=== PATIENT | male | born 1945 | race Caucasian/White ===

== ENCOUNTER → 2019-11-19 16:33 | Outpatient (BNVA) | payer MEDICARE, OTHER, SELFPAY | PROVIDERS: PCP Nurse Practitioner; Visit Provider Nurse Practitioner | DX: R53.83 Other fatigue (principal); Z11.59 Encounter for screening for other viral diseases | CPT/HCPCS: 80053; 81000; 85025; 87635 ==

== ENCOUNTER → 2019-11-25 09:38 | Outpatient (BNVA) | payer MEDICARE, OTHER, SELFPAY | PROVIDERS: PCP Nurse Practitioner; Visit Provider Nurse Practitioner | DX: R73.9 Hyperglycemia, unspecified (principal) | CPT/HCPCS: 83036 ==

== ENCOUNTER 2019-12-24 13:15 | Emergency (ER) | payer MEDICARE, OTHER, SELFPAY ==
[2019-12-24 13:30] VITALS: BP 143/80; PULSE 77; RESP 16; TEMP 36.3; O2SAT 97; BMI 27.7
[2019-12-24 13:42] VITALS: PULSE 76
--- NOTE | 2019-12-24 13:45 | XR_ITS ---
WS: [id number] Right wrist, 3 views, 12/24/2019 Clinical Data: trauma Comparison: None. Findings: There is a comminuted impacted fracture of the distal right radius with slight dorsal displacement of the distal fracture fragment. There is a simple fracture of the right ulnar styloid. Soft tissue swelling is seen. There are calcifications in the wall of the small vessels. The carpal b ones are intact XR/XR wrist RT min 3V* [id number] Impression: 1. Comminuted impacted fracture of distal right radius. 2. Simple fracture of the right ulnar styloid.
--- NOTE | 2019-12-24 13:45 | XR_ITS ---
WS: [id number] Right forearm, AP and lateral views, 12/24/2019 Clinical Data: trauma Comparison: None. Findings: There is a comminuted impacted fracture of the distal right radius. There is a simple fracture of the right ulnar styloid. The shafts of the radius and ulna appear to be normal. Visualized right elbow i s unremarkable. The carpal bones are normal. There is soft tissue swelling about the fracture site. T here is minimal calcification in the hair of small vessels. XR/XR forearm RT 2V 82120 Impression: 1. Comminuted impacted fracture of distal right radius. 2. Simple fracture of the right ulnar styloid.
--- NOTE | 2019-12-24 13:46 | ED_ITS ---
HPI - Extremity Injury (Upper) General: Chief Complaint: Extremity Injury, Upper Stated Complaint: R wrist injury/pain Time Seen by Provider: 12/24/19 13:32 Source: patient and family Mode of arrival: ambulatory Limitations: no limitations History of Present Illness: HPI narrative: Patient is a very nice 74-year-old male who presents to ED today for evaluation of right wrist pain that occurred following a fall that occurred this morning. Patient tells me he tripped and fell. He has no other complaints at this time. He denies striking his head, LOC, neck or back pain. MD complaint: injury to: right and wrist Onset (ago): hour(s) Place: home Severity: moderate Relieving factors: immobilization Exacerbating factors: movement of extremity Context: fall Associated symptoms: Reports no associated symptoms Review of Systems Musc: Reports: joint pain (R wrist pain), joint swelling (R wrist) and limited range of motion (secondary to pain) Neuro: Denies: numbness in extremities or sensory changes PFSH ED PFSH: Medical History (Updated 12/24/19 @ 14:17 by JAIMIE Husain) History of skull fracture Surgical History (Updated 11/19/19 @ 16:59 by KANIKA Celeste) History of hernia repair Family History Other Cancer Diabetes Heart disease Social History (Updated 12/24/19 @ 13:36 by Anand Acosta RN) Smoking and tobacco status: current every day smoker Second hand smoke exposure: Yes Smoking risk assessment/counseling performed?: Yes Alcohol intake: current Alcohol intake frequency: 0-2 Drinks per Day Desire information about alcohol rehabilitation?: No Counseling given: No Desire information about substance/drug rehabilitation?: No Counseling given: No Adopted: No Caregiver/support person: No Lives independently: Yes Household members: spouse Housing: House Marital status: Current occupational status: employed History of recent travel: No Current gender identity: Male Physical Exam Const: COMMON NORMALS: no acute distress, average body habitus, patient oriented x3, no limitations, healthy appearing, alert and well nourished Extremity: GENERAL: Yes normal exam except as noted RIGHT UPPER EXTREMITY: Yes lower arm (TTP mid to distal forearm) and Yes wrist (deformity consistent with fracture; dec ROM secondary to pain) Right wrist: Yes neurovascular exam (normal ) Neuro: COMMON NORMALS: patient oriented x3 and no sensory deficits noted SENSORIUM/ORIENTATION: Yes alert Skin: COMMON NORMALS: no rashes or lesions noted GENERAL SKIN EXAM: no rashes or lesions noted Course Vital Signs: Vital signs: Vital Signs Temperature 97.3 F L 12/24/19 13:30 Pulse Rate 70 12/24/19 14:39 Respiratory Rate 18 12/24/19 14:39 Blood Pressure 138/76 12/24/19 14:39 Pulse Oximetry 98 12/24/19 14:39 MDM - Extremity Injury (Upper) MDM Narrative: Medical decision making narrative: Patient will be splinted. He wants to follow up with Dr. Sutherland in [place], [place]. He will be given copies of XRs on disc. Imaging Data^: XR R wrist: Radiologist's impression: [address] [address] XRay Report Signed Patient: Jalil De Leon Unit #: [id number] : 1945 Age/Sex: 74 / M ADM Date: 12/24/19 Loc: ER Room/Bed: Attending Dr: Ordering Provider/Ordering MD: Jennifer Rose Date of Service: 12/24/19 Procedure(s): XR wrist RT min 3V* 42669 Accession Number(s): [id number] Report Number: [id number] WS: [id number] Right wrist, 3 views, 12/24/2019 Clinical Data: trauma Comparison: None. Findings: There is a comminuted impacted fracture of the distal right radius with slight dorsal displacement of the distal fracture fragment. There is a simple fracture of the right ulnar styloid. Soft tissue swelling is seen. There are calcifications in the wall of the small vessels. The carpal bones are intact XR/XR wrist RT min 3V* 34114 Impression: 1. Comminuted impacted fracture of distal right radius. 2. Simple fracture of the right ulnar styloid. Dictated By: Susy Hayes MD Signed By: Susy Hayes MD Signed Date/Time: 12/24/191402 DD/ 1402 XR R forearm: Radiologist's impression: [facility] [address] [place] [address] XRay Report Signed Patient: Jalil De Leon Unit #: [id number] : 1945 Age/Sex: 74 / M ADM Date: 12/24/19 Loc: ER Room/Bed: Attending Dr: Ordering Provider/Ordering MD: Jennifer Rose Date of Service: 12/24/19 Procedure(s): XR forearm RT 2V 78758 Accession Number(s): [id number] Report Number: [id number] WS: [id number] Right forearm, AP and lateral views, 12/24/2019 Clinical Data: trauma Comparison: None. Findings: There is a comminuted impacted fracture of the distal right radius. There is a simple fracture of the right ulnar styloid. The shafts of the radius and ulna appear to be normal. Visualized right elbow is unremarkable. The carpal bones are normal. There is soft tissue swelling about the fracture site. There is minimal calcification in the hair of small vessels. XR/XR forearm RT 2V 39566 Impression: 1. Comminuted impacted fracture of distal right radius. 2. Simple fracture of the right ulnar styloid. Dictated By: Susy Hayes MD Signed By: Susy Hayes MD Signed Date/Time: 12/24/19 1402 DD/ 1400 Discharge Plan Discharge Patient Disposition: Home Clinical Impression: Distal radial fracture Qualifiers: Encounter type: initial encounter Fracture type: closed Fracture morphology: other intra-articular Laterality: right Qualified Code(s): S52.571A - Other intraarticular fracture of lower end of right radius, initial encounter for closed fracture Fracture of right ulnar styloid Qualifiers: Encounter type: initial encounter Fracture type: closed Fracture alignment: displaced Qualified Code(s): S52.611A - Displaced fracture of right ulna styloid process, initial encounter for closed fracture Condition: Stable Prescriptions: New hydrocodone-acetaminophen 5-325 mg tablet 1 tab PO Q4H PRN (Reason: pain) Qty: 20 RF: 0 No Action No Known Home Medications RF: 0 Discharge Orders: Discharge Order (Routine); Ordered 12/24/19 Ordered By: Jennifer Rose Referrals: Nicky Crawford, [facility] [Primary Care Provider] - Patient Instructions: Wrist Fracture in Adults (ED) Activity Restrictions/Additional Instructions: As discussed please contact Dr. Sutherland's office as soon as possible to schedule a follow-up appointment. Please bring your disc x-rays with you. Discharge Date/Time: 12/24/19 14:40 Coding Level of Care Code ED Window Trimmer for Chg Fwd Exam Expanded Problem Focused
[2019-12-24 14:39] VITALS: BP 138/76; PULSE 70; RESP 18; O2SAT 98
== END 2019-12-24 14:40 | disposition home or self-care (01) ==
PROVIDERS: Emergency Provider Physician Assistant; PCP Nurse Practitioner
DX: S52.571A Other intraarticular fracture of lower end of right radius, initial encounter for closed fracture (principal); S52.611A Displaced fracture of right ulna styloid process, initial encounter for closed fracture; F17.210 Nicotine dependence, cigarettes, uncomplicated; W19.XXXA Unspecified fall, initial encounter
CPT/HCPCS: 12345; 29125; 73090; 73110; 99281; 99283

== ENCOUNTER 2021-12-04 16:28 | Emergency (ER) | payer MEDICARE, OTHER, SELFPAY ==
[2021-12-04 16:33] VITALS: BP 141/85; PULSE 104; RESP 20; TEMP 36.6; O2SAT 95; BMI 28.3
--- NOTE | 2021-12-04 16:45 | XRR_ITS ---
PROCEDURE INFORMATION: Exam: XR Left Ankle Exam date and time: 12/04/2021 5:35 PM Age: 76 years old Clinical indication: Pain; Ankle; Left; Additional info: Trauma TECHNIQUE: Imaging protocol: Radiologic exam of the Left ankle. Views: 3 or more views. COMPARISON: No relevant prior studies available. FINDINGS: Bones/joints: Lateral malleolar soft tissue swelling. Distal Achilles tendon degenerative calcification. Soft tissues: See Bones/joints finding. Vasculature: Scattered vascular calcifications. XR/XR ankle LT min 3V* [id number] IMPRESSION: 1. Lateral malleolar soft tissue swelling. 2. Scattered vascular calcifications. 3. Distal Achilles tendon degenerative calcification.
--- NOTE | 2021-12-04 16:45 | XRR_ITS ---
PROCEDURE INFORMATION: Exam: XR Right Ribs with PA Chest Exam date and time: 12/04/2021 6:25 PM Age: 76 years old Clinical indication: Chest wall pain; Right; Additional info: Trauma TECHNIQUE: Imaging protocol: Radiologic exam of the Right ribs with PA chest. Views: 3 views COMPARISON: No relevant prior studies available. FINDINGS: Lungs: Unremarkable. No consolidation. Pleural spaces: Unremarkable. No pleural effusion. No pneumothorax. Heart/Mediastinum: Cardiomegaly. Bones/joints: Unremarkable. XR/XR ribs RT mn 3V w CXR1V [id number] IMPRESSION: 1. Negative for traumatic injury to the chest. 2. Cardiomegaly.
--- NOTE | 2021-12-04 17:02 | XRR_ITS ---
PROCEDURE INFORMATION: Exam: XR Right Hip Exam date and time: 12/04/2021 5:37 PM Age: 76 years old Clinical indication: Hip pain; Right hip; Additional info: Trauma TECHNIQUE: Imaging protocol: Radiologic exam of the Right hip. Views: 1 view hip with pelvis when performed. COMPARISON: No relevant prior studies available. FINDINGS: Bones/joints: [id number] right hip osteoarthritis. Soft tissues: Unremarkable. Vasculature: Scattered vascular calcifications. XR/XR hip RT 1V wo/w pel [id number] IMPRESSION: 1. Negative for fracture or dislocation. 2. [id number] right hip osteoarthritis. 3. Scattered vascular calcifications.
--- NOTE | 2021-12-04 17:03 | W.ED.FALL ---
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 He thinks he may have struck his head he has not had any nausea or vomiting. He denies any loss of consciousness with this episode. No hematemesis or coffee-ground emesis. He is complaining of severe rib pain. He is mild abdominal pain no hematuria. No cuts or abrasions. He has right hip pain left ankle pain with abdominal and chest pain as well as neck and head pain. MD complaint: fall Onset (ago): hour(s) Fall from: standing Fall witnessed: no Place fall occurred: home Loss of consciousness: None Prolonged down time: yes Symptoms prior to fall: none Context: tripped/slipped Location of injury: head, chest, abdomen and pelvis Location of injury - extremities: Left: ankle Severity: severe Associated symptoms-after fall: Reports abdominal pain, chest pain, difficulty walking, neck pain and short of breath; Denies confusion, headache(s), hematuria, lightheadedness, numbness, vertigo or weakness Review of Systems Const: Denies: fever(s), chills, body aches, change in appetite, fatigue or malaise ENMT: Denies: throat pain, ear or mastoid pain, nasal discharge or nasal congestion Card: Reports: chest pain; Denies: edema, lightheadedness, dyspnea on exertion or orthopnea Resp: Denies: dyspnea, productive cough or non-productive cough GI: Reports: abdominal pain; Denies: nausea, vomiting, hematemesis, coffee ground emesis, diarrhea, constipation, bloating, hematochezia or melena : Reports: flank pain; Denies: difficulty urinating, dysuria, urinary frequency, urinary urgency or hematuria Musc: Reports: neck pain Skin/Breast: Denies: rash or pruritus Neuro: Reports: difficulty walking; Denies: headache(s), vertigo or confusion PFSH ED PFSH: Medical History History of skull fracture Surgical History History of hernia repair Family History Other Cancer Diabetes Heart disease Social History Smoking and tobacco status: current every day smoker Second hand smoke exposure: Yes Smoking risk assessment/counseling performed?: Yes Alcohol intake: current Alcohol intake frequency: 0-2 Drinks per Day Desire information about alcohol rehabilitation?: No Counseling given: No Desire information about substance/drug rehabilitation?: No Counseling given: No Adopted: No Caregiver/support person: No Lives independently: Yes Household members: spouse Housing: House Marital status: Current occupational status: employed History of recent travel: No Current gender identity: Male Physical Exam Const: GENERAL APPEARANCE: cooperative ORIENTATION/CONSCIOUSNESS: Yes awake, Yes oriented to person, Yes oriented to place and Yes oriented to time HENMT: COMMON NORMALS: normocephalic, atraumatic and hearing grossly normal bilaterally HEAD & SCALP: normocephalic and atraumatic Resp: COMMON NORMALS: normal respiratory effort, No retractions, No use of accessory muscles and clear to auscultation bilaterally AUSCULTATION: clear to auscultation bilaterally Cardio: COMMON NORMALS: regular rate, regular rhythm and No murmurs present (Cardio) RATE: regular rate RHYTHM: regular rhythm GI: COMMON NORMALS: Soft to palpation and No hepatosplenomegaly present AUSCULTATION: Yes normoactive bowel sounds PALPATION: Yes Soft to palpation, No Tenderness to palpation present (GI), No Guarding due to palpation present (GI) and Yes No hepatosplenomegaly present Extremity: COMMON NORMALS: normal to inspection, capillary refill normal, no clubbing, cyanosis or edema, no calf tenderness and no pedal edema Neuro: SENSORIUM/ORIENTATION: Yes oriented to person, Yes oriented to place and Yes oriented to time Skin: COMMON NORMALS: no rashes or lesions noted GENERAL SKIN EXAM: no rashes or lesions noted Course Vital Signs: Vital signs: Vital Signs Temperature 97.8 F 12/04/21 16:33 Pulse Rate 84 12/04/21 20:04 Respiratory Rate 16 12/04/21 20:04 Blood Pressure 142/90 12/04/21 20:04 Pulse Oximetry 97 12/04/21 20:04 Oxygen Delivery Me thod 12/04/21 19:27 Oxygen Flow Rate 1.5 12/04/21 19:27 MDM - Fall Medical Decision Making Care signed out to Dr. Gómez at change of shift. See final notes for diagnosis and disposition. Patient presents with contusion along with an ankle sprain from a fall his x-ray and CTs here are all normal he is stable for discharge he is to follow-up with PCP and return if worsening he understands agrees to plan. Lab Data : 12/04/21 17:10 12/04/21 17:10 Radiology Impressions Ankle X-Ray 12/04/21 16:45 IMPRESSION: 1. Lateral malleolar soft tissue swelling. 2. Scattered vascular calcifications. 3. Distal Achilles tendon degenerative calcification. Ribs X-Ray 12/04/21 16:45 IMPRESSION: 1. Negative for traumatic injury to the chest. 2. Cardiomegaly. Hip X-Ray 12/04/21 17:02 IMPRESSION: 1. Negative for fracture or dislocation. 2. [id number] right hip osteoarthritis. 3. Scattered vascular calcifications. Cervical Spine CT 12/04/21 17:09 IMPRESSION: Negative for fracture or dislocation. Chest/Abdomen/Pelvis CT 12/04/21 17:09 IMPRESSION: No acute findings in the chest IMPRESSION: 1. No acute findings. 2. 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 Head CT 12/04/21 17:09 IMPRESSION: 1. Negative for intracranial hemorrhage or mass effect. 2. Right cerebral hemisphere chronic infarct. 3. Moderate diffuse white matter disease likely reflecting chronic microvascular ischemic changes. Laboratory Results WBC 16.9 10^3/uL (4.0-10.0) H 12/04/21 17:10 RBC 4.51 10^6/uL (4.1-5.3) 12/04/21 17:10 Hgb 15.3 g/dL (11.7-16.6) 12/04/21 17:10 Hct 44.2 % (42.0-52.0) 12/04/21 17:10 MCV 98.0 fl (80-94) H 12/04/21 17:10 MCH 33.9 pg (28.0-34.0) 12/04/21 17:10 MCHC 34.6 g/dL (30.0-36.0) 12/04/21 17:10 RDW 12.3 % (12.1-15.1) 12/04/21 17:10 Plt Count 270 10^3/cmm (130-400) 12/04/21 17:10 MPV 12.3 fL (7.4-10.4) H 12/04/21 17:10 Neut % (Auto) 77.3 % 12/04/21 17:10 Lymph % (Auto) 14.3 % 12/04/21 17:10 Coal % (Auto) 7.0 % 12/04/21 17:10 Eos % (Auto) 0.5 % 12/04/21 17:10 Baso % (Auto) 0.2 % 12/04/21 17:10 Neut # (Auto) 13.05 10^3/uL (1.8-7.7) H 12/04/21 17:10 Lymph # (Auto) 2.4 10^3/uL (0.8-4.8) 12/04/21 17:10 Coal # (Auto) 1.2 10^3/uL (0.2-0.9) H 12/04/21 17:10 Eos # (Auto) 0.1 10^3/uL (0.0-0.8) 12/04/21 17:10 Baso # (Auto) 0.0 10^3/uL (0.0-0.1) 12/04/21 17:10 Nucleated RBC % (auto) 0 % 12/04/21 17:10 Nucleated RBCs # 0.0 /100WBC 12/04/21 17:10 Sodium 127 mmol/L (136-145) L 12/04/21 17:10 Potassium 3.9 mmol/L (3.5-5.1) 12/04/21 17:10 Chloride 92 mmol/L (98-107) L 12/04/21 17:10 Carbon Dioxide 23 mmol/L (22-29) 12/04/21 17:10 Anion Gap 15.9 (5-19) 12/04/21 17:10 BUN 7 mg/dL (8-23) L 12/04/21 17:10 Creatinine 0.7 mg/dL (0.7-1.2) 12/04/21 17:10 GFR Calculation Not Reportable 12/04/21 17:10 Glucose 110 mg/dL (65-115) 12/04/21 17:10 Calculated Osmolality 263 mOsm/kg (285-295) L 12/04/21 17:10 Calcium 8.8 mg/dL (8.5-10.5) 12/04/21 17:10 Urine Color Yellow (Yellow) 12/04/21 19:25 Urine Appearance Clear (CLEAR) 12/04/21 19:25 Urine pH 6 (5-7) 12/04/21 19:25 Ur Specific Unity 1.005 (1.005-1.030) 12/04/21 19:25 Urine Protein Neg (Negative) 12/04/21 19:25 Urine Glucose (UA) Norm (Normal) 12/04/21 19:25 Urine Ketones Negative (Negative) 12/04/21 19:25 Urine Blood Neg (Negative) 12/04/21 19:25 Urine Nitrate Negative (Negative) 12/04/21 19:25 Urine Bilirubin Neg (Negative) 12/04/21 19:25 Urine Urobilinogen Neg mg/dL (Negative) 12/04/21 19:25 Ur Leukocyte Esterase Negative (Negative) 12/04/21 19:25 Discharge Plan Discharge Patient Disposition: Home Clinical Impression: Fall, Left ankle sprain Condition: Stable Prescriptions: New hydrocodone-acetaminophen 5-325 mg tablet 1 tab PO Q6H PRN (Reason: pain) Qty: 14 0RF No Action dextromethorphan-guaifenesin [Mucinex DM] 60-1,200 mg tablet extended release 12 hr 1 tab PO Q12H 14 Days Qty: 28 0RF doxycycline hyclate 100 mg capsule 100 mg PO BID 7 Days Qty: 14 0RF prednisone 20 mg tablet 20 mg PO BID 5 Days Qty: 10 0RF (DME) compressor, for nebulizer Device See Rx Instructions .ROUTE .MEDSUPPLY Qty: 1 0RF Rx Instructions: As directed (DME) nebulizer accessories Kit See Rx Instructions .ROUTE .MEDSUPPLY Qty: 1 0RF Rx Instructions: As directed albuterol sulfate 2.5 mg /3 mL (0.083 %) solution for nebulization 2.5 mg INHALATION QID PRN (Reason: shortness of breath or wheezing) 14 Days Qty: 75 0RF hydrocodone-acetaminophen 5-325 mg tablet 1 tab PO Q4H PRN (Reason: pain) Qty: 20 0RF Discharge Orders: Discharge ED (Routine); Ordered 12/04/21 Ordered By: Molly Gómez Referrals: Nicky Crawford, KANIKA [Primary Care Provider] - Discharge Diet: Advance as tolerated Discharge Activity: Resume usual activity Patient Instructions: Ankle Sprain (ED), Opioid Safety Coding Level of Care Code ED [employer] for Chg Fwd Exam Detailed Documented by User: Molly Gómez MD 12/04/21 20:09 HPI - Fall General: Chief Complaint: Fall Stated Complaint: Tractor accident-pain all over/n/v Time Seen by Provider: 12/04/21 16:45 [facility] PFSH: Medical History History of skull fracture Surgical History History of hernia repair Family History Other Cancer Diabetes Heart disease Social History Smoking and tobacco status: current every day smoker Second hand smoke exposure: Yes Smoking risk assessment/counseling performed?: Yes Alcohol intake: current Alcohol intake frequency: 0-2 Drinks per Day Desire information about alcohol rehabilitation?: No Counseling given: No Desire information about substance/drug rehabilitation?: No Counseling given: No Adopted: No Caregiver/support person: No Lives independently: Yes Household members: spouse Housing: House Marital status: Current occupational status: employed History of recent travel: No Current gender identity: Male Course Vital Signs: Vital signs: Vital Signs Temperature 97.8 F 12/04/21 16:33 Pulse Rate 84 12/04/21 20:04 Respiratory Rate 16 12/04/21 20:04 Blood Pressure 142/90 12/04/21 20:04 Pulse Oximetry 97 12/04/21 20:04 Oxygen Delivery Me thod 12/04/21 19:27 Oxygen Flow Rate 1.5 12/04/21 19:27 MDM - Fall Medical Decision Making Patient presents with contusion along with an ankle sprain from a fall his x-ray and CTs here are all normal he is stable for discharge he is to follow-up with PCP and return if worsening he understands agrees to plan. Lab Data : 12/04/21 17:10 12/04/21 17:10 Radiology Impressions Ankle X-Ray 12/04/21 16:45 IMPRESSION: 1. Lateral malleolar soft tissue swelling. 2. Scattered vascular calcifications. 3. Distal Achilles tendon degenerative calcification. Ribs X-Ray 12/04/21 16:45 IMPRESSION: 1. Negative for traumatic injury to the chest. 2. Cardiomegaly. Hip X-Ray 12/04/21 17:02 IMPRESSION: 1. Negative for fracture or dislocation. 2. [id number] right hip osteoarthritis. 3. Scattered vascular calcifications. Cervical Spine CT 12/04/21 17:09 IMPRESSION: Negative for fracture or dislocation. Chest/Abdomen/Pelvis CT 12/04/21 17:09 IMPRESSION: No acute findings in the chest IMPRESSION: 1. No acute findings. 2. 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 Head CT 12/04/21 17:09 IMPRESSION: 1. Negative for intracranial hemorrhage or mass effect. 2. Right cerebral hemisphere chronic infarct. 3. Moderate diffuse white matter disease likely reflecting chronic microvascular ischemic changes. Laboratory Results WBC 16.9 10^3/uL (4.0-10.0) H 12/04/21 17:10 RBC 4.51 10^6/uL (4.1-5.3) 12/04/21 17:10 Hgb 15.3 g/dL (11.7-16.6) 12/04/21 17:10 Hct 44.2 % (42.0-52.0) 12/04/21 17:10 MCV 98.0 fl (80-94) H 12/04/21 17:10 MCH 33.9 pg (28.0-34.0) 12/04/21 17:10 MCHC 34.6 g/dL (30.0-36.0) 12/04/21 17:10 RDW 12.3 % (12.1-15.1) 12/04/21 17:10 Plt Count 270 10^3/cmm (130-400) 12/04/21 17:10 MPV 12.3 fL (7.4-10.4) H 12/04/21 17:10 Neut % (Auto) 77.3 % 12/04/21 17:10 Lymph % (Auto) 14.3 % 12/04/21 17:10 Coal % (Auto) 7.0 % 12/04/21 17:10 Eos % (Auto) 0.5 % 12/04/21 17:10 Baso % (Auto) 0.2 % 12/04/21 17:10 Neut # (Auto) 13.05 10^3/uL (1.8-7.7) H 12/04/21 17:10 Lymph # (Auto) 2.4 10^3/uL (0.8-4.8) 12/04/21 17:10 Coal # (Auto) 1.2 10^3/uL (0.2-0.9) H 12/04/21 17:10 Eos # (Auto) 0.1 10^3/uL (0.0-0.8) 12/04/21 17:10 Baso # (Auto) 0.0 10^3/uL (0.0-0.1) 12/04/21 17:10 Nucleated RBC % (auto) 0 % 12/04/21 17:10 Nucleated RBCs # 0.0 /100WBC 12/04/21 17:10 Sodium 127 mmol/L (136-145) L 12/04/21 17:10 Potassium 3.9 mmol/L (3.5-5.1) 12/04/21 17:10 Chloride 92 mmol/L (98-107) L 12/04/21 17:10 Carbon Dioxide 23 mmol/L (22-29) 12/04/21 17:10 Anion Gap 15.9 (5-19) 12/04/21 17:10 BUN 7 mg/dL (8-23) L 12/04/21 17:10 Creatinine 0.7 mg/dL (0.7-1.2) 12/04/21 17:10 GFR Calculation Not Reportable 12/04/21 17:10 Glucose 110 mg/dL (65-115) 12/04/21 17:10 Calculated Osmolality 263 mOsm/kg (285-295) L 12/04/21 17:10 Calcium 8.8 mg/dL (8.5-10.5) 12/04/21 17:10 Urine Color Yellow (Yellow) 12/04/21 19:25 Urine Appearance Clear (CLEAR) 12/04/21 19:25 Urine pH 6 (5-7) 12/04/21 19:25 Ur Specific Unity 1.005 (1.005-1.030) 12/04/21 19:25 Urine Protein Neg (Negative) 12/04/21 19:25 Urine Glucose (UA) Norm (Normal) 12/04/21 19:25 Urine Ketones Negative (Negative) 12/04/21 19:25 Urine Blood Neg (Negative) 12/04/21 19:25 Urine Nitrate Negative (Negative) 12/04/21 19:25 Urine Bilirubin Neg (Negative) 12/04/21 19:25 Urine Urobilinogen Neg mg/dL (Negative) 12/04/21 19:25 Ur Leukocyte Esterase Negative (Negative) 12/04/21 19:25 Discharge Plan Discharge Patient Disposition: Home Clinical Impression: Fall, Left ankle sprain Condition: Stable Prescriptions: New hydrocodone-acetaminophen 5-325 mg tablet 1 tab PO Q6H PRN (Reason: pain) Qty: 14 0RF No Action dextromethorphan-guaifenesin [Mucinex DM] 60-1,200 mg tablet extended release 12 hr 1 tab PO Q12H 14 Days Qty: 28 0RF doxycycline hyclate 100 mg capsule 100 mg PO BID 7 Days Qty: 14 0RF prednisone 20 mg tablet 20 mg PO BID 5 Days Qty: 10 0RF (DME) compressor, for nebulizer Device See Rx Instructions .ROUTE .MEDSUPPLY Qty: 1 0RF Rx Instructions: As directed (DME) nebulizer accessories Kit See Rx Instructions .ROUTE .MEDSUPPLY Qty: 1 0RF Rx Instructions: As directed albuterol sulfate 2.5 mg /3 mL (0.083 %) solution for nebulization 2.5 mg INHALATION QID PRN (Reason: shortness of breath or wheezing) 14 Days Qty: 75 0RF hydrocodone-acetaminophen 5-325 mg tablet 1 tab PO Q4H PRN (Reason: pain) Qty: 20 0RF Discharge Orders: Discharge ED (Routine); Ordered 12/04/21 Ordered By: Molly Gómez Referrals: Nicky Crawford, [employer] [Primary Care Provider] - Discharge Diet: Advance as tolerated Discharge Activity: Resume usual activity Patient Instructions: Ankle Sprain (ED), Opioid Safety Coding Level of Care Code ED [employer] for Chg Fwd Exam Detailed
--- NOTE | 2021-12-04 17:09 | CTR_ITS ---
PROCEDURE INFORMATION: Exam: CT Chest With Contrast; Diagnostic Exam date and time: 12/04/2021 6:56 PM Age: 76 years old Clinical indication: Injury or trauma; Fall; Generalized; Blunt trauma (contusions or hematomas); Injury details: RT sided rib, abdomen pain; Additional info: Trauma-- fell off of tractor today, complaining of side and rib pain TECHNIQUE: Imaging protocol: Diagnostic computed tomography of the chest with contrast. Radiation optimization: All CT scans at this facility use at least one of these dose optimization techniques: automated exposure control; mA and/or kV adjustment per patient size (includes targeted exams where dose is matched to clinical indication); or iterative reconstruction. Contrast material: OMNIPAQUE 350; Contrast volume: 80 ml; Contrast route: INTRAVENOUS (IV); COMPARISON: CR (CHEST, ) 12/04/2021 6:25 PM RADIATION DOSE METRICS: Total DLP (mGy-cm): 1469.18 FINDINGS: Limitations: Study somewhat limited due to streak artifact created by the patient being scanned with the arms at the sides. Lungs: There is mild dependent atelectasis at the lung bases. Pleural spaces: Unremarkable. No pneumothorax. No pleural effusion. Heart: There is a small amount of fluid in the superior pericardial recess. There is moderate atherosclerotic calcification of the coronary arteries. Lymph nodes: There is some calcified hilar and mediastinal lymph nodes in keeping with old granulomatous disease. There are small paratracheal and prevascular lymph nodes measuring up to 10 x 14 mm but no significant adenopathy. Vasculature: There is moderate ectasia of the ascending thoracic aorta with a diameter of 4.7 cm there is no evidence of aortic dissection. Bones/joints: There are old healed fractures of the posterior 5 through 8th ribs. There is mild scoliosis of the thoracic spine concave to the left. There are mild chronic appearing compression deformities of T9, T10 and T11. No acute fracture is demonstrated. Soft tissues: Unremarkable. PROCEDURE INFORMATION: Exam: CT Abdomen And Pelvis With Contrast Exam date and time: 12/04/2021 6:56 PM Age: 76 years old Clinical indication: Injury or trauma; Fall; Generalized; Blunt trauma (contusions or hematomas); Injury details: RT sided rib, abdomen pain; Additional info: Trauma-- fell off of tractor today, complaining of side and rib pain TECHNIQUE: Imaging protocol: Computed tomography of the abdomen and pelvis with contrast. Radiation optimization: All CT scans at this facility use at least one of these dose optimization techniques: automated exposure control; mA and/or kV adjustment per patient size (includes targeted exams where dose is matched to clinical indication); or iterative reconstruction. Contrast material: OMNIPAQUE 350; Contrast volume: 80 ml; Contrast route: INTRAVENOUS (IV); COMPARISON: CR (PELVIS, ) 12/04/2021 5:37 PM RADIATION DOSE METRICS: Total DLP (mGy-cm): 1469.18 FINDINGS: Limitations: Study somewhat limited due to streak artifact created by the patient being scanned with the arms at the sides. Liver: There is a diffuse decrease in hepatic parenchymal density, consistent with mild fatty infiltration. There is no focal abnormality within the liver. Gallbladder and bile ducts: The gallbladder is normal. Pancreas: The pancreas is normal. Spleen: The spleen demonstrates punctate calcifications, consistent with remote granulomatous organism exposure. Adrenal glands: The adrenal glands are normal. Kidneys and ureters: The kidneys are normal. There is no evidence of hydronephrosis. There is no evidence of renal or ureteral calcifications. Stomach and bowel: There is no evidence of colitis/diverticulitis. Appendix: A normal appendix is identified. Intraperitoneal space: There is no evidence of free intraperitoneal fluid. Vasculature: There is mild aneurysmal dilatation of the mid infrarenal abdominal aorta measuring proximally 3.6 x 3.9 cm. 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 Lymph nodes: Unremarkable. No enlarged lymph nodes. Urinary bladder: Unremarkable as visualized. Reproductive: Unremarkable as visualized. Bones/joints: The lumbar spine demonstrates mild degenerative changes at multiple levels. Soft tissues: Unremarkable. CT/CT chest abd pel w con* IMPRESSION: No acute findings in the chest IMPRESSION: 1. No acute findings. 2. 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
--- NOTE | 2021-12-04 17:09 | CTR_ITS ---
PROCEDURE INFORMATION: Exam: CT Head Without Contrast Exam date and time: 12/04/2021 6:46 PM Age: 76 years old Clinical indication: Injury or trauma; Other: Tractor accident, blunt trauma (contusions or hematomas); Consciousness not specified; Injury details: Patient fell off of tractor TECHNIQUE: Imaging protocol: Computed tomography of the head without contrast. Radiation optimization: All CT scans at this facility use at least one of these dose optimization techniques: automated exposure control; mA and/or kV adjustment per patient size (includes targeted exams where dose is matched to clinical indication); or iterative reconstruction. COMPARISON: No relevant prior studies available. RADIATION DOSE METRICS: Total DLP (mGy-cm): 1173.13 FINDINGS: Brain: Right cerebral hemisphere chronic infarct. Moderate diffuse white matter disease likely reflecting chronic microvascular ischemic changes. Cerebral ventricles: No ventriculomegaly. Paranasal sinuses: Visualized sinuses are unremarkable. No fluid levels. Mastoid air cells: Visualized mastoid air cells are well aerated. Bones/joints: Unremarkable. No acute fracture. Soft tissues: Unremarkable. CT/CT head wo con* [id number] IMPRESSION: 1. Negative for intracranial hemorrhage or mass effect. 2. Right cerebral hemisphere chronic infarct. 3. Moderate diffuse white matter disease likely reflecting chronic microvascular ischemic changes.
--- NOTE | 2021-12-04 17:09 | CTR_ITS ---
PROCEDURE INFORMATION: Exam: CT Cervical Spine Without Contrast Exam date and time: 12/04/2021 6:49 PM Age: 76 years old Clinical indication: Pain and injury or trauma; Fall; Blunt trauma; Neck pain; Prior surgery; Surgery date: 6+ months; Surgery type: Prior HX of skull fracture; Additional info: Trauma fell off of a tractor today TECHNIQUE: Imaging protocol: Computed tomography of the cervical spine without contrast. Radiation optimization: All CT scans at this facility use at least one of these dose optimization techniques: automated exposure control; mA and/or kV adjustment per patient size (includes targeted exams where dose is matched to clinical indication); or iterative reconstruction. COMPARISON: CT head wo con* [id number] 12/04/2021 6:46 PM RADIATION DOSE METRICS: Total DLP (mGy-cm): 264.07 FINDINGS: Bones/joints: No acute fracture. Normal alignment. C2-C3: No significant disc protrusion. No severe spinal canal stenosis. No significant neural foraminal narrowing. C3-C4: No significant disc protrusion. No severe spinal canal stenosis. No significant neural foraminal narrowing. C4-C5: No significant disc protrusion. No severe spinal canal stenosis. No significant neural foraminal narrowing. C5-C6: No significant disc protrusion. No severe spinal canal stenosis. No significant neural foraminal narrowing. C6-C7: No significant disc protrusion. No severe spinal canal stenosis. No significant neural foraminal narrowing. C7-T1: No significant disc protrusion. No severe spinal canal stenosis. No significant neural foraminal narrowing. Lungs: Lung apices are normal. Vasculature: Scattered carotid artery atherosclerotic calcifications. Soft tissues: Unremarkable. CT/CT cervical spin wo con* [id number] IMPRESSION: Negative for fracture or dislocation.
[2021-12-04 17:23] VITALS: RESP 18
[2021-12-04] MEDS: fentaNYL 50 mcg/mL INJ 2mL IVP (17:23)
[2021-12-04] MEDS: promethazine 25 mg/mL SDV 1 mL IM (17:24)
[2021-12-04 17:29] LABS: Basophils % 0.2 %; Eosinophils # 0.1 10^3/uL (0.0-0.8); Eosinophils % 0.5 %; Hematocrit 44.2 % (42.0-52.0); Hemoglobin 15.3 g/dL (11.7-16.6); Lymphocytes # 2.4 10^3/uL (0.8-4.8); Lymphocytes % 14.3 %; Mean Corpuscular HGB Conc 34.6 g/dL (30.0-36.0); Mean Corpuscular Hemoglobin 33.9 pg (28.0-34.0); Mean Platelet Volume 12.3 fL (7.4-10.4); Monocytes # 1.2 10^3/uL (0.2-0.9); Neutrophils # 13.05 10^3/uL (1.8-7.7); Neutrophils % 77.3 %; Nucleated Red Blood Cells % 0 %; Platelet Count 270 10^3/cmm (130-400); Red Blood Count 4.51 10^6/uL (4.1-5.3); Red Cell Distribution Width 12.3 % (12.1-15.1); White Blood Count 16.9 10^3/uL (4.0-10.0)
[2021-12-04 17:51] LABS: Anion Gap 15.9 (5-19); Blood Urea Nitrogen 7 mg/dL (8-23); Calcium 8.8 mg/dL (8.5-10.5); Carbon Dioxide 23 mmol/L (22-29); Chloride 92 mmol/L (98-107); Glucose 110 mg/dL (65-115); Osmolality Calculated 263 mOsm/kg (285-295); Potassium 3.9 mmol/L (3.5-5.1); Sodium 127 mmol/L (136-145)
[2021-12-04 18:06] VITALS: BP 144/90; PULSE 75; RESP 18; O2SAT 95
[2021-12-04] MEDS: sodium chloride 0.9% 1,000 ML 999 ML IV (19:10)
[2021-12-04] MEDS: midazolam 1 mg/mL INJ 2 mL 2 MG IVP (19:10)
[2021-12-04 19:27] VITALS: BP 154/94; PULSE 78; RESP 18; O2SAT 97
[2021-12-04 19:31] LABS: Add Urine Microscopic? NO; Charge for UA Resulting for Rev
[2021-12-04 19:34] LABS: Bilirubin Urine Neg (Negative); Blood Urine Neg (Negative); Glucose Urine UA Norm (Normal); Ketones Urine Negative (Negative); Leukocyte Esterase Urine Negative (Negative); Nitrate Urine Negative (Negative); Protein Urine Neg (Negative); Specific Gravity, Urine 1.005 (1.005-1.030); Urine Appearance Clear (CLEAR); Urine Color Yellow (Yellow); Urobilinogen Urine Neg (Negative); pH Urine 6 (5-7)
[2021-12-04 20:04] VITALS: BP 142/90; PULSE 84; RESP 16; O2SAT 97
== END 2021-12-04 20:05 | disposition home or self-care (01) ==
PROVIDERS: Family Medicine; Emergency Provider Emergency Medicine; PCP Nurse Practitioner
DX: S93.402A Sprain of unspecified ligament of left ankle, initial encounter (principal); F17.210 Nicotine dependence, cigarettes, uncomplicated; W17.89XA Other fall from one level to another, initial encounter
CPT/HCPCS: 70450; 71101; 71260; 72125; 73501; 73610; 74177; 80048; 81003; 85025; 96361; 96372; 96374; 96375; 99285; J2250; J2550; J3010; J7030; Q9967